=== PATIENT | male | born 1965 | race Caucasian/White ===

== ENCOUNTER 2023-02-10 16:24 | Emergency (ER) | payer BC ==
[2023-02-10 16:57] LABS: BASOPHILS PERCENT AUTO 0.5 % (0.2-1.2); EOSINOPHILS ABSOLUTE AUTO 0.1 x10^3/uL (0.0-0.5); EOSINOPHILS PERCENT AUTO 0.7 % (0.0-4.0); HEMATOCRIT 41.5 % (40.0-52.0); HEMOGLOBIN 14.4 g/dL (14.0-18.0); LYMPHOCYTES PERCENT AUTO 23.6 % (25.0-50.0); MEAN CORPUSCULAR HEMOGLOBIN 30.8 pg (26.0-32.0); MEAN CORPUSCULAR HGB CONC 34.7 g/dL (32.0-36.0); MEAN CORPUSCULAR VOLUME 88.7 fL (78.0-93.0); MONOCYTES ABSOLUTE AUTO 0.5 x10^3/uL (0.0-0.8); NEUTROPHILS ABSOLUTE AUTO 5.8 x10^3/uL (1.8-7.7); NEUTROPHILS PERCENT AUTO 69.2 % (50.0-80.0); PLATELET COUNT,PLT 235 x10^3/uL (130-400); RED BLOOD CELL COUNT 4.68 x10^6/uL (4.5-6.0); WHITE BLOOD CELL COUNT,WBC 8.4 x10^3/uL (4.0-10.0)
[2023-02-10 17:07] LABS: BLOOD UREA NITROGEN,BUN 13 mg/dL (7-18); CALCIUM 8.6 mg/dL (8.5-10.1); CARBON DIOXIDE,CO2 27 mmol/L (21-32); CHLORIDE,CL 105 mmol/L (98-107); GLUCOSE RANDOM 122 mg/dL (70-99); POTASSIUM,K 3.5 mmol/L (3.5-5.1); SODIUM,NA 144 mmol/L (136-145)
[2023-02-10 17:08] LABS: ANION GAP 15.5 mmol/L (5-15); ESTIMATED GFR 87 mL/min (>=60)
[2023-02-10] MEDS ORDERED: Clopidogrel 75 MG Tab PO ONE (17:58)
[2023-02-10] MEDS ORDERED: Rosuvastatin 20 MG Tab PO SCH ×2 (18:13→21:00)
[2023-02-10] MEDS ORDERED: Rosuvastatin 20 MG Tab PO ONE (18:16)
[2023-02-10 21:14] VITALS: BP 145/89; PULSE 85
== END 2023-02-10 19:16 | disposition home or self-care (01) ==
LOC: VM.ED 16:24
DX: G45.9 Transient cerebral ischemic attack, unspecified (principal); Z79.899 Other long term (current) drug therapy
CPT/HCPCS: 70450; 80048; 85025; 93005; 99284; A9270-GY